=== PATIENT | female | born 2000 | race African-American/Black ===

== ENCOUNTER 2019-08-09 08:00 | Outpatient (CLI) | payer OTHER ==
--- NOTE | 2019-08-09 09:12 | ULT ---
Obstetrical ultrasound: 08/09/2019 COMPARISON: None HISTORY: Evaluate anatomy TECHNIQUE: Multiplanar grayscale sonographic imaging of the gravid uterus obtained. FINDINGS: Cervical length is estimated at 4.0 cm. A vertex presentation is noted. The spine, stomach, umbilical cord, umbilical cord insertion, urinary bladder, four-chamber hea rt view, nose and lips, kidneys, and intracranial contents appear grossly unremarkable. Amniotic fluid index is 13.3 cm, within normal limits. biometry: BPD 4.6 cm 20 weeks 1 days Head circumference 18.0 cm 20 weeks 4 days Abdominal circumference 14.9 cm 20 weeks 2 days Femur length 3.4 cm 20 weeks 4 days Average age based on ultrasound is 20 weeks 3 days. Estimated weight is 350 g +/- 51 g. Estimated date of delivery is 12/24/2019. The placenta is located posteriorly and demonstrates no evidence for previa or abruption IMPRESSION: Unremarkable obstetrical ultrasound.
== END 2019-08-09 08:01 | disposition home or self-care (01) ==
LOC: BICULT 08:00
PROVIDERS: ATTEND Family Medicine
DX: Z34.02 Encounter for supervision of normal first pregnancy, second trimester (principal)
CPT/HCPCS: 76805

== ENCOUNTER 2019-10-06 07:28 | Day surgery (SDC) | payer OTHER ==
[2019-10-06 07:49] VITALS: BP 114/56; TEMP 99.1; BMI 23.8
[2019-10-06] MEDS ORDERED: hydrALAZINE 20 MG/ML VIAL SLOW IVP PRN (09:24)
[2019-10-06 10:00] LABS: Bacteria/HPF 4+ HPF (None Seen); Bilirubin Negative (Negative); Blood, Urine Negative (Negative); Clarity Clear (Clear); Glucose, Urine (Dipstick) 150 mg/dL (Negative); Leukocyte 75 Leu/uL (Negative); Nitrite Negative (Negative); Protein, Urine (Dipstick) Negative (Neg-Trace); RBC/HPF 0-3 HPF (0-3); Squamous Epithelial 0-3 HPF (0-3); Urobilinogen Normal mg/dL (Less than 2)
--- NOTE | 2019-10-06 13:41 | PRG ---
DATE OF SERVICE: 10/06/2019 PRIMARY OB: Chris Kothari MD CHIEF COMPLAINT: Vaginal bleeding. HISTORY OF PRESENT ILLNESS: The patient is a 19-year-old G1, P0 female with an intrauterine at 28 weeks and 1 day, followed by Dr. Chris Kothari, who is presenting today with one episode of light pink vaginal bleeding. The patient reports that she went to the bathroom this morning to urinate and when she wiped, she noticed some blood on the tissue. She denies any trauma or fall. She denies any recent infections, change in discharge, contractions, urinary urgency, or frequency. The patient denies fever, headache, chest pain, shortness of breath, nausea, vomiting, diarrhea, constipation, hip problems, knee problems, muscle weakness. Denies any new rashes. The patient does report some lower back pain that she is feeling yesterday, as if her pelvis was from her back, but has since resolved on its own. Again, the patient denies any noticeable change in discharge, urinary urgency, or frequency. PAST MEDICAL HISTORY: Negative. PAST SURGICAL HISTORY: Negative. ALLERGIES: NO KNOWN DRUG ALLERGIES. MEDICATIONS: vitamins. SOCIAL HISTORY: Denies drug, alcohol, tobacco use. SALON ASSISTANT HISTORY: The patient denies any history of gonorrhea and chlamydia. Her current sexual partner is different from the one, that is the father of the baby. REVIEW OF SYSTEMS: Per HPI. OB LABS: Unavailable at time of dictation. PHYSICAL EXAMINATION: VITAL SIGNS: Blood pressure 114/56, pulse of 78, respiratory rate of 18, temperature 99.1. GENERAL: She appears to be in no acute distress. She is alert, oriented, cooperative, and pleasant to interact with. HEAD: Normocephalic and atraumatic. LUNGS: Clear to auscultation bilaterally. HEART: Has a regular rate and rhythm. ABDOMEN: Gravid, soft, nontender. EXTREMITIES: Nontender, nonedematous. GENITOURINARY: Vulva is without any erythema or lesions. She does have a significant amount of discharge present on her perineum and vulvar region. On speculum exam, again has significant discharge, plaque-like formations on the vaginal almonte in addition to more copious discharge present at the level of the cervix making difficult to visualize the cervix clearly. Cervix is friable with some noted light bleeding with placement of the speculum. On digital exam, cervix is closed and thick. heart tracing shows a baseline in the 150s. Positive accelerations. No decelerations. Tocometer is free of any contractions. VPIII is positive for Trichomonas, for Rochelle, and for Gardnerella. Urinalysis shows 4+ bacteria, 0 to 3 squamous cells, 11 to 20 white blood cells, and 75 leukocyte esterase, negative nitrites. ASSESSMENT AND PLAN: The patient is a 19-year-old G1, P0 female with an intrauterine at 28 weeks and a day, presenting with light bleeding. Testing has shown multiple infections including Trichomonas, bacterial vaginosis, yeast infection vaginally, and evidence of urinary tract infection. Her urine has been sent for culture. The patient did leave before results were available, but she has been contacted by phone and given the results. We did not perform a gonorrhea and chlamydia test here. We have stressed the importance of her getting that done before we get started on antibiotic coverage, just get a more accurate picture. She has agreed to come back, if she is unable to get into the clinic. She will need a prescription for metronidazole 500 mg to be taken twice a day as well as Macrobid 100 mg twice a day, both for one week. She is going to be using Monistat 7 [id number] for her yeast infection. The GC and chlamydia testing will be followed up with her primary OB, Dr. Chris Kothari. Fetus has a category I tracing and reactive NST. Job ID: [id number]
[2019-10-07] MEDS ORDERED: FLU VACC QS2019-20(6MOS UP)/PF 60 MCG/0.5 ML SYRINGE IM ONE (08:00)
== END 2019-10-06 09:30 | disposition home or self-care (01) ==
LOC: L&D/OP 07:28
PROVIDERS: ATTEND Family Medicine
DX: O46.93 Antepartum hemorrhage, unspecified, third trimester (principal); O98.813 Other maternal infectious and parasitic diseases complicating pregnancy, third trimester; B37.3 Candidiasis of vulva and vagina; A59.01 Trichomonal vulvovaginitis; B96.89 Other specified bacterial agents as the cause of diseases classified elsewhere; O23.43 Unspecified infection of urinary tract in pregnancy, third trimester; Z3A.28 28 weeks gestation of pregnancy
CPT/HCPCS: 81001; 87077; 87086; 87186; 87480; 87510; 87660; 99283

== ENCOUNTER 2019-10-06 13:18 | Day surgery (SDC) | payer OTHER ==
--- NOTE | 2019-10-06 13:49 | PDOC.EVN ---
Event Note - Event Note Event Note: PT has returned for gc/ct testing. she left before vp3/ua results were available and were positive for trich,yeast,bv,uti. Will be submitting gc/ct now. Dr Mills has been contacted and updated on his pt. He will f/u on gc/ct. [facility] [place]. flagyl/macrobid. will be using monistat otc.
[2019-10-07 17:33] LABS: Chlamydia by PCR Not Detected (NotDetected); GC by PCR Not Detected (NotDetected)
== END 2019-10-06 13:58 | disposition home health service (06) ==
LOC: L&D/OP 13:18
PROVIDERS: ATTEND Family Medicine
DX: Z11.3 Encounter for screening for infections with a predominantly sexual mode of transmission (principal); O98.319 Other infections with a predominantly sexual mode of transmission complicating pregnancy, unspecified trimester; A59.01 Trichomonal vulvovaginitis; O98.819 Other maternal infectious and parasitic diseases complicating pregnancy, unspecified trimester; B37.3 Candidiasis of vulva and vagina; O23.40 Unspecified infection of urinary tract in pregnancy, unspecified trimester; Z3A.00 Weeks of gestation of pregnancy not specified
CPT/HCPCS: 87491; 87591; 99281

== ENCOUNTER 2019-10-22 16:27 | Inpatient (IN) | payer OTHER ==
[2019-10-22 20:25] VITALS: BMI 24.1
[2019-10-22] MEDS ORDERED: hydrALAZINE 20 MG/ML VIAL SLOW IVP PRN (20:37)
--- NOTE | 2019-10-22 20:41 | PDOC.FPROB ---
FMR OB H&P: HPI - History of Present Illness Chief Complaint: Decreased FM Indentification: 19yo at 30.0wks History of Present Illness: 19yo at 30.0wks presents with decreased FM. She was seen in the ED as she was concerned about fever she has had over the last few days. Was worried that when she was taking Tylenol it was causing decreased movement. Reports temp of 100.7 in ED. Now 99.8. Reports lower back pain that started around the same time as the fever. Denies dysuria, hematuria. Denies contractions, LOF, vaginal bleeding/discharge. Primary Care Physician: Dr Kothari- ace appt scheduled Nov 01 FMR OB H&P: Current - Care : 1 Para: 0 Gestational age: 30.0wks FMR OB H&P: History - Past Medical History PMH: None - Surgical History Sx History: None - Social History Social History: Denies tobacco, alcohol and drug use - Family History Family History: Unremarkable FMR OB H&P: Medications - Current Home Medications: Medication Instructions Recorded Confirmed Type Metronidazole [metroNIDAZOLE] 500 mg PO Q12HR #14 tab 10/06/19 Rx Nitrofurantoin Monohyd/M-Cryst 100 mg PO BID #14 cap 10/06/19 Rx [Macrobid] Pnv No.95/Ferrous Fum/Folic AC 1 tablet PO DAILY 10/06/19 10/06/19 History [Prenavite Tablet] Allergies/Adverse Reactions: Allergies Allergy/AdvReac Type Severity Reaction Status Date / Time No Known Allergies Allergy Verified 10/06/19 07:45 FMR OB H&P: ROS - Review of Systems General: reports: fever/chills Eyes: denies: vision changes ENT: reports: nasal congestion. denies: sore throat Cardiovascular: denies: chest pain, palpitation Respiratory: denies: congestion, shortness of breath Gastrointestinal: denies: abdominal pain, vomiting Genitourinary (Female): denies: dysuria, hematuria, vaginal discharge, vaginal bleeding, contractions Musculoskeletal: denies: pain, swelling Neurologic: denies: weakness Integumentary: denies: itching, rash FMR OB H&P: Vital Signs - Heart Tones Baseline: 140 Variability: moderate Acceleration: present Deceleration: absent Category: category 1 FMR OB H&P: Physical Exam - Physical Exam General: NAD, awake, alert and oriented HEENT: normocephalic and atraumatic, MMM, conjunctiva clear, grossly normal hearing, oropharynx clear Neck: supple, trachea midline Heart: RRR, no murmurs/rubs/gallops General: CTAB, no respiratory distress, no wheezing Abdomen: soft, gravid, non-tender, bowel sound present Deviation from normal: No CVA tenderness Musculoskeletal: normal gait and station, pulses present, no atrophy Skin: no rash, capillary refill <2 seconds Psychiatric: intact recent and remote memory, good judgement and insight, normal mood and affect FMR OB H&P: A/P Disposition: 19yo at 30.0wks who presents with fever, back pain and decreased FM. - Flu neg in ED - Initial temp of 100.7, self resolved - NST reactive - CBC and UA pending at this time. Discussion: Date/Time: 10/22/192039 This H&P was discussed with Dr. Chong who agrees with the above documentation and plan. Addendum - Attending - Attending Attestation Date/Time: 10/22/192300 I personally evaluated the patient and discussed the management with Dr. Blanco. I agree with the History, Examination, Assessment and Plan documented above.
[2019-10-22 22:09] LABS: Bilirubin Small (Negative); Blood, Urine Small (Negative); Glucose, Urine (Dipstick) Negative (Negative); Leukocyte Large (Negative); Nitrite Negative (Negative); Protein, Urine (Dipstick) 100 mg/dL (Neg-Trace)
[2019-10-22 22:10] LABS: Clarity Cloudy (Clear)
[2019-10-22 22:14] LABS: Bacteria/HPF 4+ HPF (None Seen); Squamous Epithelial 0-3 HPF (0-3); WBC/HPF Greater Than 50 HPF (0-3)
[2019-10-22 22:15] LABS: Urine Culture Reflex Yes Yes
[2019-10-22 22:36] LABS: Band 11 % (5-11); Hemoglobin 9.5 g/dL (12.0-16.0); Lymphocytes 10 % (21-51); MDiff Complete? YES; Mean Corpuscular HGB CONC 34.2 g/dL (32.0-36.0); Mean Corpuscular Hemoglobin 29.2 pg (27.0-31.0); Mean Corpuscular Volume 85.4 fL (78.0-98.0); Mean Platelet Volume 9.2 fL (7.4-10.4); Monocytes 12 % (0-10); Neutrophil 67 % (42-75); Platelet Count 186 thou/uL (130-400); Platelet Morphology Comment Appears Adequate; RBC Distribution Width 11.6 % (11.5-14.5); Red Blood Cell (RBC) Count 3.25 mill/uL (4.20-5.40); White Blood Cell (WBC) Count 13.8 thou/uL (4.8-10.8)
[2019-10-22] MEDS ORDERED: Acetaminophen 500 MG TAB PO PRN (22:57)
[2019-10-22] MEDS ORDERED: Ondansetron PF 4 MG/2 ML Vial IVP PRN (22:57)
[2019-10-22] MEDS ORDERED: Butorphanol Tartrate 1 MG/ML VIAL SLOW IVP PRN (22:57)
[2019-10-22] MEDS ORDERED: Zolpidem Tartrate 5 MG TAB PO PRN (22:57)
[2019-10-22] MEDS ORDERED: Promethazine HCl 25 MG/ML VIAL IM PRN (22:57)
--- NOTE | 2019-10-22 22:57 | PDOC.EVN ---
Event Note - Event Note Event Note: WBC return 13 K. UA with 4+ bacteria. FHTs stable, no UCs seen. Will admit for presumed pyelonephritis and start ABX> Dr. Kothari notified.
[2019-10-22] MEDS ORDERED: Lactated Ringer's 1,000 ML IV SCH (23:00)
[2019-10-23] MEDS: Sodium Chloride 0.9% 1,000 ML IV SCH ×2 (00:22→19:27)
[2019-10-23] MEDS: cefTRIAXone\\ROCEPHIN 1 GM in Sodium Chloride 0.9% 100 ML IVPB SCH ×2 (00:22)
[2019-10-23] MEDS ORDERED: Acetaminophen 500 MG TAB PO PRN (10:43)
[2019-10-23] MEDS: Ferrous Sulfate 325 MG TAB PO SCH (17:21)
[2019-10-23] MEDS ORDERED: cefTRIAXone\\ROCEPHIN 2 GM in Sodium Chloride 0.9% 100 ML IVPB SCH (18:00)
[2019-10-23] MEDS ORDERED: FLU VACC QS2019-20(6MOS UP)/PF 60 MCG/0.5 ML SYRINGE IM ONE (21:00)
[2019-10-24] MEDS: Sodium Chloride 0.9% 1,000 ML IV SCH ×2 (06:20)
[2019-10-24] MEDS: Ferrous Sulfate 325 MG TAB PO SCH (07:54)
[2019-10-24 08:51] VITALS: BP 96/51; TEMP 98.3
--- NOTE | 2019-10-24 23:35 | DIS ---
DATE OF ADMISSION: 10/22/2019 DATE OF DISCHARGE: 10/24/2019 PRINCIPAL DIAGNOSES: 1. Thirty weeks . 2. Pyelonephritis. 3. Anemia, chronic iron deficiency. OPERATIVE PROCEDURES: None. CONSULTANTS: None. BRIEF HISTORY: A 19-year-old black female G1, P0 with 2-3 days of fever, flank pain and urinary frequency, is also concerned about decreased movement. PHYSICAL EXAMINATION: VITAL SIGNS: On admission showed a temperature of 100.7, pulse 110, blood pressure normal. ABDOMEN: Soft and nontender; however, there was mild left-sided CVA tenderness. LABORATORY DATA: Laboratory studies showed a white count of 14, H and H of 9.5/27.7, platelets 186. Urinalysis showed greater than 50 WBCs with 4+ bacteria, and this eventually grew out pansensitive E coli. HOSPITAL COURSE: Ms. Arnold was admitted to . She was started on IV antibiotics. She defervesced by hospital day #2. She was able to tolerate a regular diet. No more CVA tenderness and was ambulatory and reported regular activity. She was discharged in good condition on 10/24/2019. DISCHARGE INSTRUCTIONS: ACTIVITY: As tolerated. DIET: Regular. DISCHARGE MEDICATIONS: Cephalexin 500 mg t.i.d. x7 days, then 1 daily thereafter. FOLLOWUP: In 1 week. Job ID: [id number]
== END 2019-10-24 11:07 | disposition home or self-care (01) | DRG 833 ==
LOC: ERS 16:27 → 3SW 20:00 → L&D/OP 20:03 → L&D 23:02 → 3SW 23:41
PROVIDERS: ADMIT Family Medicine; ATTEND Family Medicine
DX: O23.03 Infections of kidney in pregnancy, third trimester (principal); Z3A.30 30 weeks gestation of pregnancy; O99.013 Anemia complicating pregnancy, third trimester; D50.9 Iron deficiency anemia, unspecified
CPT/HCPCS: 36415; 59025; 81001; 85025; 87077; 87086; 87186; 87804; 93005; J0696; J3490

== ENCOUNTER 2019-12-15 07:32 | Inpatient (IN) | payer OTHER ==
[2019-12-15 08:09] VITALS: BMI 26.6
[2019-12-15 08:35] LABS: Amnisure Test No Membranes Rupture (No Rupture)
[2019-12-15 08:36] LABS: Amnisure Internal Control QC ACCEPTABLE (ACCEPTABLE)
[2019-12-15] MEDS ORDERED: hydrALAZINE 20 MG/ML VIAL SLOW IVP PRN ×3 (08:37→21:06)
[2019-12-15] MEDS ORDERED: Ibuprofen 800 MG TAB PO PRN (09:31)
[2019-12-15] MEDS ORDERED: Zolpidem Tartrate 5 MG TAB PO PRN ×2 (09:31→21:06)
[2019-12-15] MEDS ORDERED: Ondansetron PF 4 MG/2 ML Vial IVP PRN ×3 (09:31→21:06)
[2019-12-15] MEDS ORDERED: Promethazine HCl 25 MG/ML VIAL IM PRN ×3 (09:31→21:06)
[2019-12-15] MEDS ORDERED: Lidocaine 1% (PF) 30 ML VIAL SC PRN (09:31)
[2019-12-15] MEDS ORDERED: HYDROcodone/Acetaminophen 5/325 mg Tablet PO PRN ×3 (09:31→21:06)
[2019-12-15] MEDS ORDERED: Butorphanol Tartrate 1 MG/ML VIAL SLOW IVP PRN (09:31)
[2019-12-15] MEDS ORDERED: Meperidine HCl/PF 25 MG/ML VIAL IM/IV PRN (09:31)
[2019-12-15] MEDS ORDERED: Acetaminophen 500 MG TAB PO PRN (09:31)
[2019-12-15] MEDS ORDERED: NS / Oxytocin 40 units/1000ml 1,000 ML IV PRN (09:31)
--- NOTE | 2019-12-15 09:35 | PDOC.LDHP ---
Labor and Delivery H&P Chief complaint: loss of fluid HPI: 19 yo BF c/o gush of large amount of fluid this AM. Denies painful UCs or bleeding. Current gestational age (weeks): 38 Due date: 12/28/19 Dating criteria: last menstrual period Grav: 1 Para: 0 OB History Details: PNC with Dr. Kothari w/o complications. GBS negative per his office. Current complications: none Abnormal US findings: No Past Medical History: none Current medications: pre-courtney vitamins Previous surgical history: none Allergies/Adverse Reactions: Allergies Allergy/AdvReac Type Severity Reaction Status Date / Time No Known Allergies Allergy Verified 12/15/19 08:10 Social history: none - Physical Exam Vital signs reviewed and normal: yes General: NAD Heart: RRR Lungs: CTAB Abdomen: gravid Extremeties: trace edema FHT: category 1 [place] contractions every: irregular - Vaginal Exam cm dilated: 1 Effacement: 50% Station: -1 - OB Labs GBS: negative - Assessment L&D Assessment: term rupture in membranes (Amnisure and SSE are negative but DARWIN = 5.5) - Plan Plan: admit to L&D, cervical ripening, labor augmentation if indicated, informed consent obtained, anesthesia consult for pain management, other (Dr. Kothari notified of admit)
[2019-12-15] MEDS ORDERED: Lactated Ringer's 1,000 ML IV SCH (09:45)
[2019-12-15] MEDS ORDERED: NS w/ Oxytocin 10 units 500 ML IV SCH (09:45)
--- NOTE | 2019-12-15 09:59 | ULT ---
LIMITED OB ULTRASOUND: HISTORY: Questionable rupture of membranes. FINDINGS: Real-time imaging of the pelvis shows a viable intrauterine in the cephalic presentation. heart rate is 128 b.p.m. The placenta is posterior in location and more fundal. No previa. C ervical canal length is not well assessed. Amniotic fluid appears diminished. Amniotic fluid index is calculated at 5.5. IMPRESSION: Diminished amniotic fluid. Amniotic fluid index was calculated at 5.5. POS: TPC
[2019-12-15] MEDS: Lactated Ringer's 1,000 ML IV SCH ×2 (10:00→14:30)
[2019-12-15] MEDS: Misoprostol 100 MCG TAB VAG SCH ×3 (10:33→16:41)
[2019-12-15 10:37] LABS: Hemoglobin 9.7 g/dL (12.0-16.0); Mean Corpuscular HGB CONC 34.5 g/dL (32.0-36.0); Mean Corpuscular Hemoglobin 27.8 pg (27.0-31.0); Mean Corpuscular Volume 80.5 fL (78.0-98.0); Mean Platelet Volume 10.5 fL (7.4-10.4); Platelet Count 196 thou/uL (130-400); RBC Distribution Width 14.1 % (11.5-14.5); Red Blood Cell (RBC) Count 3.51 mill/uL (4.20-5.40); White Blood Cell (WBC) Count 10.2 thou/uL (4.8-10.8)
[2019-12-15 11:20] LABS: Syphilis Antibody Nonreactive (Nonreactive); Syphilis Antibody Index 0.03 S/CO (<1.00 Non-Reactive)
[2019-12-15 11:33] LABS: HBSAg Index 0.21 S/CO (0-0.99); Hep B Surf Ag Non-Reactive S/CO (NonReactive)
[2019-12-15] MEDS ORDERED: Terbutaline Sulfate 1 MG/ML VIAL ONE (14:58)
[2019-12-15] MEDS ORDERED: Bupivacaine 0.25% HCL 30 ML VIAL ONE (16:12)
[2019-12-15] MEDS ORDERED: Fentanyl 4 mcg/Bup 0.1% Cadd 100 ML ONE (16:18)
[2019-12-15] MEDS ORDERED: Naloxone HCl 0.4 mg/ml Vial IVP PRN ×2 (16:41)
[2019-12-15] MEDS ORDERED: Lactated Ringer's 500 ML IV PRN (16:41)
[2019-12-15] MEDS ORDERED: EPHEDRINE 25 MG/5 ML SYRINGE SLOW IVP PRN (16:41)
[2019-12-15] MEDS ORDERED: diphenhydrAMINE 50 MG/ML VIAL IVP PRN (16:41)
[2019-12-15] MEDS ORDERED: Acetaminophen 325 MG TAB PO PRN (16:41)
[2019-12-15] MEDS ORDERED: Communication Order-Pharmacy FS SCH (16:45)
[2019-12-15] MEDS ORDERED: Fentanyl 4 mcg/Bupivacaine 0.1% Cassette 100 ML EPIDURAL SCH (16:45)
[2019-12-15] MEDS ORDERED: Fentanyl 100 MCG/2 ML VIAL ONE (18:26)
[2019-12-15] MEDS ORDERED: Benzocaine-Menthol 82.5 ML CAN TOP PRN (21:06)
[2019-12-15] MEDS ORDERED: NS / Oxytocin 40 units/1000ml 1,000 ML IV SCH (21:06)
[2019-12-15] MEDS ORDERED: Milk Of Magnesia 30 ML UDCUP PO PRN (21:06)
[2019-12-15] MEDS ORDERED: diphenhydrAMINE 25 MG CAP PO PRN (21:06)
[2019-12-15] MEDS ORDERED: Bisacodyl 10 MG SUPP PR PRN (21:06)
[2019-12-15] MEDS: Ibuprofen 800 MG TAB PO SCH (22:04)
[2019-12-15] MEDS: Docusate Calcium (SURFAK) 240 MG CAP PO SCH (22:04)
[2019-12-16] MEDS: HYDROcodone/Acetaminophen 5/325 mg Tablet PO PRN ×3 (00:16→14:39)
[2019-12-16] MEDS ORDERED: Sodium Chloride 0.9% 10 ML ONE (00:21)
[2019-12-16] MEDS: Ibuprofen 800 MG TAB PO SCH ×3 (04:58→21:09)
[2019-12-16 06:38] LABS: Hemoglobin 9.1 g/dL (12.0-16.0); Mean Corpuscular HGB CONC 33.8 g/dL (32.0-36.0); Mean Corpuscular Hemoglobin 27.1 pg (27.0-31.0); Mean Corpuscular Volume 80.4 fL (78.0-98.0); Mean Platelet Volume 10.6 fL (7.4-10.4); Platelet Count 197 thou/uL (130-400); RBC Distribution Width 14.3 % (11.5-14.5); Red Blood Cell (RBC) Count 3.36 mill/uL (4.20-5.40); White Blood Cell (WBC) Count 14.9 thou/uL (4.8-10.8)
[2019-12-16] MEDS: Misoprostol 100 MCG TAB VAG SCH (07:42)
[2019-12-16] MEDS: Docusate Calcium (SURFAK) 240 MG CAP PO SCH ×2 (08:06→21:10)
[2019-12-16] MEDS: Ferrous Sulfate 325 MG TAB PO SCH ×2 (08:06→18:17)
[2019-12-16] MEDS ORDERED: Adacel (T-DAP) 0.5 ML SYRINGE IM ONE (09:00)
[2019-12-17] MEDS: HYDROcodone/Acetaminophen 5/325 mg Tablet PO PRN (05:35)
[2019-12-17] MEDS: Ibuprofen 800 MG TAB PO SCH ×2 (05:36→13:13)
[2019-12-17 08:34] VITALS: BP 98/53; TEMP 98.6
[2019-12-17] MEDS: Docusate Calcium (SURFAK) 240 MG CAP PO SCH (09:08)
[2019-12-17] MEDS: Ferrous Sulfate 325 MG TAB PO SCH ×2 (09:09→17:33)
== END 2019-12-17 18:10 | disposition home or self-care (01) | DRG 807 ==
LOC: L&D/OP 07:32 → L&D 07:33 → 3SW 21:48
PROVIDERS: ADMIT Family Medicine; ATTEND Family Medicine
PROC: 10E0XZZ Delivery of Products of Conception, External Approach (ICD-10-PCS; principal; 2019-12-15)
PROC: 0HQ9XZZ Repair Perineum Skin, External Approach (ICD-10-PCS; 2019-12-15)
DX: O70.0 First degree perineal laceration during delivery (principal); Z37.0 Single live birth; Z3A.38 38 weeks gestation of pregnancy
CPT/HCPCS: 36415; 76815; 84112; 85027; 86780; 86850; 86900; 86901; 87340; J0595; J3010; J3105; S0020